=== PATIENT | male | born 1975 | race Caucasian/White ===

== ENCOUNTER 2021-07-13 15:58 | Outpatient (REF) | payer OTHER, SELFPAY ==
--- NOTE | 2021-07-13 16:50 | MHC.AU.ANR ---
Adult Audiological Evaluation Date of Visit: 07/13/21 Reason for Appointment: Audiological evaluation due to concern for decreased hearing. Mr. Castañeda reports fluctuating hearing difficulties. He notes that frequently at the end of a work day his hearing will seem decreased and muffled, and he has difficulty understanding speech. He notes that his hearing goes back to normal the next morning. 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 He consistently wears ear muff style hearing protection devices. Does patient feel they have a hearing loss?: Unsure If Yes, Which Ear?: Both Ears When Was Hearing Difficulty First Noticed?: ~ 2 years ago Has hearing been tested previously?: No Hearing Handicap Inventory: HHIE SCORE: 24 Based on HHIE score, patient has: Mild to moderate perceived hearing handicap Ear History: Family History of Hearing Loss?: Yes: Father History of Ear Wax Buildup: Both Ears History of occupational noise exposure?: Yes: Construction for 30 years History: History: Yes Branch: [employer] Years in : 4-8 Years Medical History: Medical History: Unremarkable Medical History Otoscopy: Right Ear: Unremarkable Left Ear: Unremarkable Tympanometry: Tympanometry performed due to: To assess integrity of the middle ear system Right Ear: Normal Middle Ear System (Type A) Left Ear: Normal Middle Ear System (Type A) Hearing Evaluation: Transducer(s) Used: Circumaural Headphones, Bone Conduction Method: Conventional Audiometry Stimuli Used: Pure Tones Right Ear: Description of Hearing: Normal hearing from 250-8000 Hz. Left Ear: Description of Hearing: Normal hearing from 250-8000 Hz. Speech Recognition Threshold (SRT): Method Used: Monitored Live Voice Stimuli Used: Spondee Words Right Ear: 5 dBHL Left Ear: 5 dBHL Word Discrimination: Method: Recorded Lists Word Lists Used: NU-6 Right Ear: 92% at 50 dBHL Left Ear: 100% at 50 dBHL QuickSIN: 0 dB SNR loss when presented binaurally at 50 dBHL, indicating normal [id number] understanding abilities. Interpretation of Results: Hearing is normal bilaterally. It is possible that what Mr. Castañeda is experiencing with fluctuating decreased in hearing is related to temporary threshold shifts due to excessive noise exposure throughout the work day. Recommendations: No further audiological action is indicated at this time. Audiological re-evaluation if changes are noted. Although he reports wearing hearing protection consistently, he may consider using a different model of hearing protection that offers better protection from noise than what he is currently using. Diagnosis: Primary Diagnosis: H93.293 Abnormal Auditory Perception Services Performed: Services Performed: Pure Tone- Air (CPT 23797) Speech Audiometry Threshold, with Speech Recognition (CPT 18525) Tympanometry (CPT 69462) Unlisted Otorhinolaryngological Service or Procedure (CPT 16024) Signature: Provider: Susan Morelos, CCC-A
== END 2021-07-13 15:59 | disposition home or self-care (01) ==
LOC: HO.SH 15:58
PROVIDERS: Visit Provider Internal Medicine
DX: H91.92 Unspecified hearing loss, left ear (principal)
CPT/HCPCS: 92552; 92556; 92567; 92700

== ENCOUNTER → 2021-11-30 08:19 | Outpatient (BNVA) | payer SELFPAY | PROVIDERS: PCP Internal Medicine; Visit Provider Physician Assistant | DX: Z02.79 Encounter for issue of other medical certificate (principal) ==

== ENCOUNTER → 2023-10-25 14:42 | Outpatient (BNVA) | payer SELFPAY | PROVIDERS: PCP Internal Medicine; Visit Provider Physician Assistant | DX: Z02.79 Encounter for issue of other medical certificate (principal) ==